=== PATIENT | female | born 1980 | race African-American/Black ===

== ENCOUNTER 2017-05-08 18:26 | Emergency (ER) | payer MEDICAID ==
[~2017-05-08] VITALS: Ht 167.6 cm; Wt 59.0 kg
[2017-05-08 18:45] VITALS: BP 122/74
[2017-05-08] MEDS ORDERED: Albuterol ud Inhalation HHN ONE (18:45)
[2017-05-08] MEDS ORDERED: Ipratropium 0.02% Inh Soln 2.5ml UD HHN ONE (18:45)
[2017-05-08] MEDS ORDERED: Vancomycin 1 GM in D5W 275 ML IVPB ONE (19:15)
[2017-05-08] MEDS ORDERED: Trimethoprim/Sulfamethoxazole 15 ML in D5W 500ml 550 ML IVPB ONE (19:15)
[2017-05-08 19:24] LABS: EOSINOPHILS % (AUTO) 0.7 % (0.0-3.0); LYMPHOCYTES % (AUTO) 25.1 % (20.0-45.0); MEAN CORPUSCULAR HEMOGLOBIN 27.2 PG (27.0-31.0); MEAN CORPUSCULAR HGB CONC 33.8 G/DL (32.0-36.0); MEAN CORPUSCULAR VOLUME 80 FL (80-99); MEAN PLATELET VOLUME 6.8 FL (6.5-10.1); MONOCYTES % (AUTO) 5.1 % (1.0-10.0); NEUTROPHILS % (AUTO) 68.1 % (45.0-75.0); PLATELET COUNT 283 K/UL (150-450); RED BLOOD COUNT 4.47 M/UL (4.20-5.40); RED CELL DISTRIBUTION WIDTH 13.3 % (11.6-14.8); WHITE BLOOD COUNT 4.7 K/UL (4.8-10.8)
[2017-05-08 19:31] LABS: PROTHROMBIN TIME 10.8 SEC (9.30-11.50)
[2017-05-08 19:36] LABS: TROPONIN I < 0.30 ng/mL (<=0.30)
[2017-05-08 19:39] LABS: ALANINE AMINOTRANSFERASE 14 U/L (3-33); ALBUMIN/GLOBULIN RATIO 0.8 (1.0-2.7); ANION GAP 15 (5-15); ASPARTATE AMINO TRANSFERASE 25 U/L (5-40); CALCIUM 8.7 mg/dL (8.6-10.2); CARBON DIOXIDE 28 mEQ/L (20-30); CHLORIDE 94 mEQ/L (98-107); CREATININE 0.6 mg/dL (0.5-0.9); GLOMERULAR FILTRATION RATE > 60 mL/min (>60); HEMOLYSIS 15; POTASSIUM 3.1 mEQ/L (3.4-4.9); SODIUM 137 mEQ/L (135-145); TOTAL PROTEIN 6.3 g/dL (6.6-8.7)
--- NOTE | 2017-05-08 19:56 | Emergency Room Report ---
History of Present Illness General Chief Complaint: Upper Respiratory Illness Source: Patient Present Illness [facility] The patient presents with hypoxia and a cough. She has dyspnea with minimal exertion. This has been going on for 2 weeks and worsening. She was seen by Dr. Benitez today. He states that she has AIDS. She was on antivirals and has been off for 1 year. She states she had a lot of side effects from them. She has been trying to treat herself with homeopathic medicines. Blood tests were done by the MD and then when she was leaving an O2 sat was low and therefore the patient was brought here by paramedics. Initial O2 sat with paramedics was 89%. Some spitting up bile with coughing. The patient has a history of asthma although has states she has had no wheezing. In addition to that she has white buildup on her tongue. She also has some diarrhea. She denies any chest pain. Apparently family is unaware of the prior history of HIV. Current told 2 days ago. She denies SI or major depression. Some blood in stool, diarrhea and cramps. + weight loss. Apparently initial dx was 2004 when she was . Father of child +. Allergies: Coded Allergies: ASPIRIN (Verified Allergy, Unknown, 05/08/17) Patient History Past Medical History: see triage record Past Surgical History: - X2 Pertinent Family History: other - child HIV neg Social History: Reports: alcohol use, drug use - THC, Denies: smoking Social History Narrative - 2 children Now: No Reviewed Nursing Documentation: PMH: Agreed, PSxH: Agreed Nursing Documentation-PMH Past Medical History: No History, Except For Review of Systems All Other Systems: negative except mentioned in HPI Physical Exam Vital Signs Date Time Temp Pulse Resp B/P (MAP) Pulse Ox O2 Delivery O2 Flow Rate FiO2 05/08/17 18:23 98.2 116 16 116/84 98 Nasal Cannula 2.0 Sp02 EP Interpretation: reviewed, abnormal - low as interpreted by me General Appearance: no apparent distress, non-toxic, thin Head: normocephalic Eyes: bilateral eye normal inspection, bilateral eye PERRL ENT: moist mucus membranes - white plaque tongue and mouth Neck: supple Respiratory: lungs clear, normal breath sounds, no rhonchi, decreased breath sounds Cardiovascular #1: tachycardia Cardiovascular #2: 2+ radial (R) Gastrointestinal: normal inspection, normal bowel sounds, non tender, no mass, non-distended, scaphoid Musculoskeletal: back normal, gait/station normal, normal range of motion Neurologic: alert, oriented x3, grossly normal Psychiatric: mood/affect normal Skin: normal inspection, warm/dry Medical Decision Making Diagnostic Impression: Primary Impression: Bilateral pneumonia Qualified Codes: J18.9 - Pneumonia, unspecified organism Additional Impressions: AIDS Thrush Acute diarrhea ER Course The patient presents with hypoxia and history of being immune compromise. Differential is broad including Pneumocystis carinii, bacterial pneumonia, tuberculosis amongst others. Exam is against this being DVT. She has a history of asthma and will be treated with breathing treatments. [place] will be obtained and she will be started on broad-spectrum antibiotics including Bactrim. After breathing treatments the patient is feeling better however she is hypoxemic. I titrated oxygen up and on 3-1/2 L she was satting at 95%. CXR with bilateral infiltrates c/w Pneumocystis carinii (although could be other organisms). Pattern against TB. Antibiotics begun. Nystatin given for thrush. The nurse saw her coughing and she desaturated saturated at that time. She's placed on a 50% Ventimask. Satting 100% on 50% and NAD. Presented to Dr. Gomez at [facility] for transfer. Laboratory Tests Test 05/08/17 19:00 05/08/17 19:28 White Blood Count 4.7 K/UL (4.8-10.8) L Pending Red Blood Count 4.47 M/UL (4.20-5.40) Hemoglobin 12.2 G/DL (12.0-16.0) Hematocrit 36.0 % (37.0-47.0) L Mean Corpuscular Volume 80 FL (80-99) Mean Corpuscular Hemoglobin 27.2 PG (27.0-31.0) Mean Corpuscular Hemoglobin Concent 33.8 G/DL (32.0-36.0) Red Cell Distribution Width 13.3 % (11.6-14.8) Platelet Count 283 K/UL (150-450) Mean Platelet Volume 6.8 FL (6.5-10.1) Neutrophils (%) (Auto) 68.1 % (45.0-75.0) Lymphocytes (%) (Auto) 25.1 % (20.0-45.0) Monocytes (%) (Auto) 5.1 % (1.0-10.0) Eosinophils (%) (Auto) 0.7 % (0.0-3.0) Basophils (%) (Auto) 1.0 % (0.0-2.0) Prothrombin Time 10.8 SEC (9.30-11.50) Prothrombin Time INR 1.0 (0.9-1.1) PTT 29 SEC (23-33) Sodium Level 137 mEQ/L (135-145) Potassium Level 3.1 mEQ/L (3.4-4.9) L Chloride Level 94 mEQ/L (98-107) L Carbon Dioxide Level 28 mEQ/L (20-30) Anion Gap 15 (5-15) Blood Urea Nitrogen 6 mg/dL (7-23) L Creatinine 0.6 mg/dL (0.5-0.9) Estimate Glomerular Filtration Rate > 60 mL/min (>60) Glucose Level 96 mg/dL (74-106) Lactic Acid Level 1.60 mmol/L (0.66-2.22) Calcium Level 8.7 mg/dL (8.6-10.2) Total Bilirubin 0.6 mg/dL (0.0-1.2) Aspartate Amino Transferase (AST) 25 U/L (5-40) Alanine Aminotransferase (ALT) 14 U/L (3-33) Alkaline Phosphatase 59 U/L (35-104) Total Creatine Kinase 45 U/L (26-140) Troponin I < 0.30 ng/mL (<=0.30) Pro-B-Type Natriuretic Peptide 1692 pg/mL (0-125) H Total Protein 6.3 g/dL (6.6-8.7) L Albumin 2.9 g/dL (3.5-5.2) L Globulin 3.4 g/dL Albumin/Globulin Ratio 0.8 (1.0-2.7) L Lymphocytes Pending Percent CD3 Cells Pending Absolute CD3 Count Pending Percent CD4 Cells Pending Absolute CD4 Count Pending T-Lymphocyte CD4/CD8 Ratio Pending Percent CD8 Cells Pending Absolute CD8 Count Pending EKG Diagnostic Results Rate: tachycardiac Rhythm: NSR ST Segments: no acute changes Rhythm Strip Diag. Results EP Interpretation: yes Rhythm: no PVC's, no ectopy, other Chest X-Ray Diagnostic Results Chest X-Ray Diagnostic Results : Chest X-Ray Ordered: Yes # of Views/Limited/Complete: 1 View Indication: Shortness of Breath EP Interpretation: Yes Interpretation: no effusion, no pneumothorax, other - bilat infiltrates Impression: Other Interpreting ER Provider: Electronically signed by Ryan Rutherford MD Last Vital Signs Date Time Temp Pulse Resp B/P (MAP) Pulse Ox O2 Delivery O2 Flow Rate FiO2 05/08/17 21:56 98.2 110 30 128/80 100 Ambu-Bag 2.0 50 Status: improved Disposition: XFER [facility] Condition: Serious - but stable for transfer Referrals: [facility],REFERRING (PCP) Ryan Rutherford M.D. May 08, 2017 19:56
[2017-05-08] MEDS ORDERED: Trimethoprim/Sulfamethoxazole 15 ML in D5W 500ml 550 ML IV ONE (20:00)
[2017-05-08] MEDS ORDERED: GARLIC1 EAC1 PO (20:03)
[2017-05-08] MEDS ORDERED: Nystatin Susp 500,000 units/5ml ORAL STA (20:09)
[2017-05-08] MEDS ORDERED: cefTRIAXone 1 GM in NS 55 ML IVPB ONE (20:15)
[2017-05-08] MEDS ORDERED: Vancomycin 1gm inj IVPB ONE (21:43)
[2017-05-08 21:55] VITALS: BP 128/80
[2017-05-08 21:56] VITALS: BP 128/80
--- NOTE | 2017-05-09 11:00 | Diagnostic Imaging Report ---
Indication: Dyspnea Comparison: None A single view chest radiograph was obtained. Findings: Borderline cardiomegaly is present. Lungs are essentially clear. Bones are unremarkable. Impression: Borderline cardiomegaly. No acute findings
[2017-05-10 10:29] LABS: CD3 ABSOLUTE 853 /uL (622-2402); CD4 ABSOLUTE 52 /uL (359-1519); CD8 ABSOLUTE 785 /uL (109-897); LYMPHOCYTES ABSOLUTE 1.4 x10E3/uL (0.7-3.1); LYMPHS 31 % (.); WBC 4.6 x10E3/uL (3.4-10.8)
== END 2017-05-08 21:58 | disposition short-term general hospital (02) ==
LOC: EDBD 18:26 → EMR 18:55
DX: J18.9 Pneumonia, unspecified organism (principal); R19.7 Diarrhea, unspecified; B37.9 Candidiasis, unspecified; Z88.6 Allergy status to analgesic agent
CPT/HCPCS: 36415; 71010; 80053; 82550; 83605; 83880; 84484; 85025; 85610; 85730; 86360; 87040; 93005; 94640; 94664; 96374; 96375; 99285; J0696; J3370